=== PATIENT | female | born 1950 | race Caucasian/White ===

== ENCOUNTER 2017-06-15 12:17 | Emergency (ER) | payer OTHER ==
[~2017-06-15] VITALS: Ht 154.9 cm; Wt 60.0 kg
[~2017-06-15 12:17] MED LIST: AMOXICILLIN500 MG PO; PREMARIN0.625 MG PO; PROMETRIUM100 MG PO
[2017-06-15] MEDS ORDERED: LORTAB 1010 MG PO (13:06)
[2017-06-15 13:22] VITALS: BP 166/76
== END 2017-06-15 13:22 | disposition home or self-care (01) | DRG 563 ==
LOC: ED 12:17
PROC: 2W3DX1Z Immobilization of Left Lower Arm using Splint (ICD-10-PCS; principal; 2017-06-15)
DX: S52.502A Unspecified fracture of the lower end of left radius, initial encounter for closed fracture (principal); M79.602 Pain in left arm; W01.0XXA Fall on same level from slipping, tripping and stumbling without subsequent striking against object, initial encounter; Y93.9 Activity, unspecified; Y92.009 Unspecified place in unspecified non-institutional (private) residence as the place of occurrence of the external cause